=== PATIENT | male | born 2000 | race Caucasian/White ===

== ENCOUNTER 2023-12-14 16:15 | Emergency (ER) | payer SELFPAY ==
[2023-12-14] MEDS ORDERED: Sodium Chloride 0.9% 20 ML SDV IV PRN (16:22)
[2023-12-14] MEDS: Sodium Chloride 0.9% 10 ML Syringe FLUSH PRN (16:58)
[2023-12-14] MEDS: Sodium Chloride 0.9% 2.5 ML Syringe FLUSH PRN (16:58)
[2023-12-14 17:00] LABS: BASOPHILS ABSOLUTE AUTO 0.07 K/uL (0.00-0.20); BASOPHILS PERCENT AUTO 0.4 % (0.0-1.0); EOSINOPHILS ABSOLUTE AUTO 0.11 K/uL (0.00-0.45); EOSINOPHILS PERCENT AUTO 0.6 % (0.0-6.0); HEMATOCRIT 49.6 % (42.0-52.0); HEMOGLOBIN 16.8 g/dL (14.0-18.0); IMMATURE GRAN ABSOLUTE AUTO 0.43 K/uL (0.00-0.05); IMMATURE GRAN PERCENT AUTO 2.2 % (0.0-0.4); LYMPHOCYTES ABSOLUTE AUTO 2.03 K/uL (1.00-4.80); LYMPHOCYTES PERCENT AUTO 10.3 % (24.0-44.0); MEAN CORPUSCULAR HEMOGLOBIN 27.1 pg (28.0-32.0); MEAN CORPUSCULAR HGB CONC 33.9 g/dL (32.0-36.0); MEAN PLATELET VOLUME 9.6 fL (9.4-12.4); MONOCYTES ABSOLUTE AUTO 0.81 K/uL (0.00-0.80); MONOCYTES PERCENT AUTO 4.1 % (0.0-8.0); NEUTROPHILS ABSOLUTE AUTO 16.28 K/uL (1.80-7.70); NEUTROPHILS PERCENT AUTO 82.4 % (41.0-71.0); PLATELET COUNT,PLT 436 K/uL (150-400); WHITE BLOOD CELL COUNT,WBC 19.73 K/uL (3.9-11.3)
[2023-12-14] MEDS: fentaNYL 50 MCG/ML SDV IVPUSH ONE (17:05)
[2023-12-14] MEDS: Ondansetron 4 MG/2 ML SDV IVPUSH ONE (17:05)
[2023-12-14 17:23] LABS: ALBUMIN 3.5 g/dL (3.4-5.0); BILIRUBIN TOTAL 0.6 mg/dL (0.2-1.0); CALCIUM 8.8 mg/dL (8.5-10.1); CARBON DIOXIDE,CO2 23.8 mmol/L (21.0-32.0); CREATININE 1.4 mg/dL (0.8-1.3); EST CRCL DRUG DOSING (CG) 88.9 mL/min; POTASSIUM,K 4.2 mmol/L (3.5-5.1)
== END 2023-12-14 17:31 ==
LOC: EDBD 16:18 → MW.ED 16:18
DX: S06.9XAA Unspecified intracranial injury with loss of consciousness status unknown, initial encounter (principal); S22.41XA Multiple fractures of ribs, right side, initial encounter for closed fracture; S72.331A Displaced oblique fracture of shaft of right femur, initial encounter for closed fracture; S27.321A Contusion of lung, unilateral, initial encounter; S29.8XXA Other specified injuries of thorax, initial encounter; M21.931 Unspecified acquired deformity of right forearm; V29.99XA Rider (driver) (passenger) of other motorcycle injured in unspecified traffic accident, initial encounter
CPT/HCPCS: 36415; 71045; 72170; 73552; 80053; 83690; 85025; 86850; 86900; 86901; 96374; 96375; 99285; J2405; J3010; J3490